=== PATIENT | female | born 1970 | race Caucasian/White ===

== ENCOUNTER 2020-10-21 11:08 | Emergency (ER) | payer OTHER ==
[~2020-10-21] VITALS: Ht 152.4 cm; Wt 68.0 kg
[2020-10-21 11:09] VITALS: BP 134/83
--- NOTE | 2020-10-21 11:13 | NUR ---
Pt taken to lobby.
--- NOTE | 2020-10-21 11:26 | NUR ---
PATIENT AMBULATED TO BED 12 WITH STEADY GAIT
--- NOTE | 2020-10-21 11:49 | NUR ---
50 Y/O FEMALE C/O DIZZINESS WITH NAUSEA/NO VOMITING X 1DAY. PT STATES SHE HAS HAD EPISODES OF VERTIGO BEFORE WITH PT STATING SHE SPINS AND NOT THE ROOM. PT DENIES FEVER/CHILLS. PMH: ANXIETY NKA
[2020-10-21 13:56] VITALS: BP 134/83
--- NOTE | 2020-10-21 13:56 | NUR ---
Patient discharged with v/s stable. Written and verbal after care instructions given and explained. Patient verbalized understanding. Ambulatory with steady gait. All questions addressed prior to discharge. Advised to follow up with PMD.
== END 2020-10-21 13:56 | disposition home or self-care (01) ==
LOC: MED 11:08
DX: F41.9 Anxiety disorder, unspecified (principal); R42 Dizziness and giddiness; R19.7 Diarrhea, unspecified; R11.0 Nausea; Z98.890 Other specified postprocedural states
CPT/HCPCS: 71045; 81025; 93005; 99283

== ENCOUNTER 2020-10-29 08:36 | Day surgery (SDC) | payer OTHER, SELFPAY ==
[~2020-10-29] VITALS: Ht 152.4 cm; Wt 68.5 kg
[2020-10-29] MEDS ORDERED: diphenhydrAMINE 50 MG/ML VIAL ONE (10:20)
[2020-10-29] MEDS ORDERED: MIDAZOLAM 5 MG/5 ML VIAL ONE (10:21)
[2020-10-29] MEDS ORDERED: fentaNYL citrate 0.05 MG/ML VIAL ONE (10:21)
[2020-10-29] MEDS: MIDAZOLAM 2 MG/2 ML VIAL IVP ONE (10:25)
[2020-10-29] MEDS: fentaNYL citrate 0.05 MG/ML VIAL IVP ONE (10:26)
== END 2020-10-29 11:53 | disposition home or self-care (01) ==
LOC: MDS 08:36 → MMU 08:36 → MDS 11:53
PROVIDERS: ATTEND Internal Medicine Gastroenterology
DX: Z12.11 Encounter for screening for malignant neoplasm of colon (principal); D12.4 Benign neoplasm of descending colon; K31.7 Polyp of stomach and duodenum; I10 Essential (primary) hypertension; E11.9 Type 2 diabetes mellitus without complications; I48.91 Unspecified atrial fibrillation; E78.5 Hyperlipidemia, unspecified; Z86.73 Personal history of transient ischemic attack (TIA), and cerebral infarction without residual deficits; Z79.01 Long term (current) use of anticoagulants; Z79.84 Long term (current) use of oral hypoglycemic drugs; Z79.899 Other long term (current) drug therapy; Z20.822 Contact with and (suspected) exposure to COVID-19
CPT/HCPCS: 43239; 43251; 45385; 88305; 88312; 88313; 88342; J2250; J3010; U0003; J1200